=== PATIENT | male | born 1970 | race Caucasian/White ===

== ENCOUNTER 2022-05-04 14:25 | Outpatient (CLI) | payer OTHER, SELFPAY ==
[2022-05-04 18:34] LABS: Alanine Aminotransferase 31 U/L (6-50); Albumin Level 4.1 g/dL (3.5-5.1); Alkaline Phosphatase 100 U/L (38-126); Anion Gap 9 mmol/L (8-16); Aspartate Amino Transferase 46 U/L (17-59); Bilirubin,Total 0.6 mg/dL (0.2-1.3); Blood Urea Nitrogen 14 mg/dL (9-20); Calcium 9.3 mg/dL (8.4-10.2); Carbon Dioxide 32 mmol/L (22-30); Chloride 96 mmol/L (98-107); Cholesterol 167 mg/dL (0-200); Estimated Glomerular Filt Rate > 60; Glucose 131 mg/dL (65-110); HDL Direct 19 mg/dL; Potassium 4.3 mmol/L (3.4-5.0); Sodium 137 mmol/L (137-145); Triglycerides 339 mg/dL (<150)
[2022-05-04 18:38] LABS: Basophils Percent Auto 0.5 % (0.2-1.2); Eosinophils Absolute Auto 0.3 K/mm3 (0-0.3); Eosinophils Percent Auto 4.2 % (0-4.4); Hematocrit 47.4 % (42.0-52.0); Hemoglobin 15.1 g/dL (14.0-18.0); Immature Granulocyte Absolute 0.06 K/mm3 (0.00-0.031); Immature Granulocyte Percent A 0.7 % (0-0.5); Immature Platelet Fraction Pct 15.8 % (0.9-11.2); Lymphocytes Absolute Auto 2.62 K/mm3 (0.9-3.2); Mean Corpuscular HGB Conc 31.9 g/dl (32-36); Mean Corpuscular Hemoglobin 30.8 pg (26-34); Mean Corpuscular Volume 96.5 fl (80-100); Mean Platelet Volume 12.7 fl (7.4-10.4); Monocytes Absolute Auto 0.6 K/mm3 (0.1-0.6); Monocytes Percent Auto 7.5 % (2.6-8.5); Neutrophils Absolute Auto 4.5 K/mm3 (1.3-6.7); Neutrophils Percent Auto 55.1 % (45.5-73.1); Platelet Count Result 161 k/mm3 (150-375); Red Blood Count 4.91 M/mm3 (4.6-6.20); Red Cell Distribution Width 13.5 % (11.5-14.5); Valproic Acid 34.5 ug/mL (50-120); White Blood Count 8.2 K/mm3 (4.5-10.0)
[2022-05-04 18:45] LABS: LDL Cholesterol Direct 79 mg/dL
[2022-05-04 18:50] LABS: Microalbumin Urine Random 23.1 mg/L (0-16.7)
[2022-05-04 18:55] LABS: Hemoglobin A1C 7.7 % (<5.7)
[2022-05-04 19:21] LABS: MALB Creatinine Ratio 5.7 mg/g (0-30)
== END 2022-05-04 14:26 | disposition home or self-care (01) ==
LOC: ANHGOSHLAB 14:29
PROVIDERS: PCP Internal Medicine; Visit Provider Nurse Practitioner
DX: E11.9 Type 2 diabetes mellitus without complications (principal); F32.A Depression, unspecified
CPT/HCPCS: 36415; 80053; 80061; 80164; 82043; 82607; 83036; 85025; 85055

== ENCOUNTER → 2022-05-25 12:09 | Outpatient (CLI) | payer OTHER, SELFPAY ==
--- NOTE | ~2022-05-25 | XR_ITS ---
EXAMINATION: XR chest 2V DATE: 05/25/2022 12:39 INDICATION: Shortness of breath TECHNIQUE: frontal and lateral views of the chest were obtained. COMPARISON: None FINDINGS: Eventration of the right hemidiaphragm with linear atelectasis along the elevated anterior portion of the right hemidiaphragm. No other airspace opacities, pulmonary edema, pleural effusion or pneumotho rax. Heart size is normal. Visualized bones and soft tissues are unremarkable. IMPRESSION: 1. Mild right basilar atelectasis/scarring along the elevated anterior right hemidiaphragm. Reviewed, dictated and finalized at location A. IMPRESSION: 1. Mild right basilar atelectasis/scarring along the elevated anterior right he midiaphragm.
== END ==
PROVIDERS: PCP Nurse Practitioner; Visit Provider Nurse Practitioner
DX: R06.02 Shortness of breath (principal); R91.8 Other nonspecific abnormal finding of lung field
CPT/HCPCS: 71046

== ENCOUNTER 2022-05-27 07:21 | Outpatient (CLI) | payer OTHER, SELFPAY ==
--- NOTE | 2022-06-26 16:29 | WPDSLEEPSTUD ---
Sleep Study Date of Study: 05/27/22 Ordering Provider: Karina Kamara NP Interpreting Physician: Ginny Candelario MD Sleep Study Type: Split Polysomnogram Height: 1.68 m Weight: 108.862 kg Body Mass Index: 38.7 Neck Circumference (inches): 18.5 [place]: 24 Reason for Sleep Study waking at night unable to breathe Sleep History Kosta Rm is a 51-year-old man who has difficulty with waking up throughout the night. He wakes up not being able to breathe. He has difficulty falling asleep and staying asleep. He wakes up several times during the night. He has a difficult time waking in the morning. He has excessive daytime sleepiness. He constantly wakes up feeling short of breath. He constantly wakes up with heartburn, belching or coughing. His snoring is always loud enough that others complain about it. He always has trouble sleeping with a cold. He constantly wakes up gasping for breath at night. He constantly sweats excessively at night and notices his heart pounding or beating irregularly at night. He constantly falls asleep during the day, falls asleep involuntarily and while driving. He occasionally has loss of muscle tone with strong emotion. He constantly has daytime problems due to excessive sleepiness. 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 he occasionally feels paralyzed on waking or falling asleep. He occasionally has vivid dreamlike scenes upon awakening or falling asleep. He constantly feels afraid of going to sleep. He constantly has nightmares. He occasionally remembers his dreams. He occasionally has racing thoughts. He occasionally feels sad, depressed or anxious. He occasionally has muscular tension and notices parts of his body jerking. He constantly kicks at night, constantly has crawling and aching feelings in his legs and constantly has leg pain at night. He occasionally has morning jaw pain. He occasionally grinds his teeth during sleep. He always is bothered by pain during the day. He occasionally is awakened by pain at night. He constantly wakes up feeling stiff in the morning with sore achy muscles and pain in the neck and spine. He has fatigue, memory problems, headaches, and difficulties with daytime functioning. His medical conditions include hypertension, hyperlipidemia, seasonal allergies, diabetes and depression. Normal bedtime 9:30 p.m. taking 2 hours to fall asleep waking every 2 hours at night to go to the bathroom. He wakes the morning at 6:30 a.m.. His weekend schedule is the same. He takes naps in the afternoon or evening. A short nap is not refreshing. He is drowsy in the morning. He feels better in the morning compared to other times of day. Habits: He is a never smoker. He drinks caffeine 2 sodas per day. He drinks alcohol once or twice a month. No recreational drug [facility], [facility] Past Medical History Medical History Diabetes Heart attack 2021 Hyperlipidemia Hypertension IBS (irritable bowel syndrome) Surgical History Surgical History H/O hernia repair 1995, 2004, 2007, 2020 Family History Family History Father Alcoholism Hypertension Social History Social History Smoking status: Never smoker Alcohol intake: current Substance use: never Substance use type: does not use Medications Home Medications Medication Instructions Recorded Confirmed Type citalopram 20 mg tablet 20 mg PO DAILY 05/04/22 05/25/22 History divalproex 500 mg tablet,delayed 500 mg PO Q12H 05/04/22 05/25/22 History release (Depakote) lisinopril 10 mg tablet 10 mg PO DAILY 05/04/22 05/25/22 History multivitamin 1 tablet PO DAILY 05/04/22 05/25/22 History metformin 1,000 mg tablet 1,000 mg PO BIDWMEAL 90 days #180 05/25/22 05/25/22 Rx tabs atorvastatin 40 mg tablet (Lipi
[2022-06-26 18:13] VITALS: BMI 38.7
== END 2022-05-28 06:17 | disposition home or self-care (01) ==
LOC: ANHCSM 07:22
PROVIDERS: PCP Nurse Practitioner; Visit Provider Nurse Practitioner
DX: G47.30 Sleep apnea, unspecified (principal); G25.81 Restless legs syndrome
CPT/HCPCS: 95811

== ENCOUNTER 2022-06-15 12:53 | Outpatient (CLI) | payer OTHER, SELFPAY ==
--- NOTE | ~2022-06-15 | CT_ITS ---
EXAMINATION:CT diagnostic chest w con DATE: 06/15/2022 13:34 INDICATION: Disorder of the diaphragm. Right upper quadrant abdominal pain. TECHNIQUE: Computed tomography (CT) of the chest was performed with 75 mL Omnipaque 350 intravenous c ontrast. Automated exposure control and iterative reconstruction technique were employed. The dose-le ngth product (DLP) was 664.19 mGy-cm. COMPARISON: Chest 2 views 05/25/22 FINDINGS: There is eventration of anterior right hemidiaphragm. There is eventration of left hemidiap hragm. There is mild atelectasis bilaterally. Right-sided pleural thickening is noted. No pleural eff usion. The heart size is normal. No pericardial effusion. There is diffuse hepatic steatosis. There i s a 2.9 cm cyst in left kidney. There are old healed right rib fractures. There is mild thoracic spon dylosis. IMPRESSION: 1. Eventrations of the diaphragm, right worse than left. Reviewed, dictated and finalized at location A.
[2022-06-15 16:12] LABS: Estimated Glomerular Filt Rate > 60
== END 2022-06-15 12:54 | disposition home or self-care (01) ==
LOC: ANHIMG 12:54
PROVIDERS: PCP Nurse Practitioner; Visit Provider Nurse Practitioner
DX: J98.6 Disorders of diaphragm (principal)
CPT/HCPCS: 71260; Q9967

== ENCOUNTER 2022-07-07 13:14 | Outpatient (CLI) | payer OTHER, SELFPAY ==
[2022-07-07 15:54] LABS: Valproic Acid < 10.0 ug/mL (50-120)
== END 2022-07-07 13:15 | disposition home or self-care (01) ==
LOC: ANHLAB 13:19
PROVIDERS: PCP Nurse Practitioner
DX: Z51.81 Encounter for therapeutic drug level monitoring (principal); Z79.899 Other long term (current) drug therapy
CPT/HCPCS: 36415; 80164